=== PATIENT | female | born 1975 | race Caucasian/White ===

== ENCOUNTER → 2016-12-31 | Outpatient (CLI) | payer OTHER | END | disposition home or self-care (01) | LOC: GMAM 15:16 | PROVIDERS: ATTEND Family Medicine | DX: R21 Rash and other nonspecific skin eruption (principal) ==

== ENCOUNTER → 2017-01-19 | Outpatient (CLI) | payer OTHER | END | disposition home or self-care (01) | LOC: GMA 14:11 | PROVIDERS: ATTEND Nurse Practitioner Acute Care | DX: E53.9 Vitamin B deficiency, unspecified (principal); R53.1 Weakness; E55.9 Vitamin D deficiency, unspecified ==